=== PATIENT | male | born 1930 | race Caucasian/White ===

== ENCOUNTER 2016-08-29 13:07 | Emergency (ER) | payer MEDICARE, MEDICAID ==
[~2016-08-29] VITALS: Ht 167.6 cm; Wt 74.1 kg
[~2016-08-29 13:07] MED LIST: ALBU8I INH; ASPI81TA82 PO; ATOR80TA PO; HYDR12.56 PO; PROT40TA PO; TAMS0.4C67 PO; TRAM50 PO; VITA500015 CHEW
[2016-08-29 13:17] VITALS: BP 125/59; PULSE 61; RESP 18; TEMP 97.6; O2SAT 98
[2016-08-29] MEDS ORDERED: HYDR12.57 PO (13:34)
[2016-08-29] MEDS ORDERED: ASPI81TA81 (13:34)
[2016-08-29] MEDS ORDERED: NAPR220T95 PO (13:34)
--- NOTE | 2016-08-29 14:04 | PD ---
HPI Chief Complaint: Dizziness Time Seen by Provider: 13:44 Travel History International Travel<30 days: No Contact w/Intl Traveler<30days: No Traveled to known affect area: No History of Present Illness HPI This patient complains of headache in the occiput. Duration 2 days. Severity is moderate. No injury. No thunderclap onset. He also has some positional vertigo. No alleviating factors. PFSH Past Medical History Hx Anticoagulant Therapy: Yes (ASA) Arthritis: Yes Blood Disorders: No Heart Rhythm Problems: No Cancer: Yes (prostate) Cardiac Catheterization: No Cardiovascular Problems: Yes (HTN) High Cholesterol: Yes Chest Pain: Yes (11/2011) Congestive Heart Failure: No Cerebrovascular Accident: Yes Diabetes: No Diminished Hearing: Yes ([place] BILAT) Endocrine: No Genitourinary: Yes Headaches: Yes Hypertension: Yes Immune Disorder: No Musculoskeletal: Yes Neurologic: Yes Psychiatric: No Reproductive: No Respiratory: Yes Immunizations Current: Yes Radiation Therapy: Yes (OCTOBER 2001) Sleep Apnea: Yes (NOT ON CPAP) Ulcer: Yes (IN REMOTE PAST) Past Surgical History AICD: No Appendectomy: Yes Arteriovenous Shunt: No Cardiac Surgery: Yes (R CAROTIDECTOMY 2006) Coronary Artery Bypass Graft: No Ear Surgery: Yes Insulin Pump: No Joint Replacement: No Pacemaker: No Other Surgery: Yes (RIGHT ANKLE SX) Social History Alcohol Use: No Tobacco Use: No (QUIT 1969) Substance Use: No Allergies-Medications (Allergen,Severity, Reaction): Coded Allergies: No Known Allergies (Verified , 08/29/16) Reported Meds & Prescriptions Reported Meds & Active Scripts Active Reported Aleve (Naproxen Sodium) 220 Mg Tab 220 Mg PO BID PRN Aspir-81 (Aspirin) 81 Mg Tabdr Hydrochlorothiazide 12.5 Mg Cap 12.5 Mg PO DAILY Review of Systems General / Constitutional: No: Fever Eyes: No: Visual changes HENT: Positive: Headaches, Vertigo Cardiovascular: No: Chest Pain or Discomfort Respiratory: No: Shortness of Breath Gastrointestinal: No: Abdominal Pain Genitourinary: No: Dysuria Musculoskeletal: Positive: Pain Skin: No Rash Neurologic: Positive: Dizziness, Headache, No: Weakness Psychiatric: No: Depression Endocrine: No: Polydipsia Hematologic/Lymphatic: No: Easy Bruising Physical Exam Narrative GENERAL: Well-nourished, well-developed patient in no apparent distress. SKIN: Focused skin assessment reveals no rash and nodules. Skin is Warm and dry. HEAD: Atraumatic. Normocephalic. EYES: Pupils equal and round. No scleral icterus. No injection or drainage. ENT: No nasal bleeding or discharge. Mucous membranes pink and moist. NECK: Trachea midline. No JVD. CARDIOVASCULAR: Regular rate and rhythm. No murmur appreciated. RESPIRATORY: No accessory muscle use. Clear to auscultation. Breath sounds equal bilaterally. GASTROINTESTINAL: Abdomen soft, non-tender, nondistended. Hepatic and splenic margins not palpable. MUSCULOSKELETAL: No obvious deformities. No clubbing. No cyanosis. No edema. NEUROLOGICAL: Awake and alert. No obvious cranial nerve deficits. Motor grossly within normal limits. Normal speech. PSYCHIATRIC: Appropriate mood and affect; insight and judgment normal. Data Data Last Documented VS Vital Signs Date Time Temp Pulse Resp B/P Pulse Ox O2 Delivery O2 Flow Rate FiO2 08/29/16 13:35 Room Air 08/29/16 13:17 97.6 61 18 125/[address] Brain W/O Iv Contrast(Rout) (08/29/16 ) [facility] Medical Decision Making Medical Screen Exam Complete: Yes Emergency Medical Condition: Yes Medical Record Reviewed: Yes Differential Diagnosis Differential diagnosis includes migraine, tension headache, cluster headache, meningitis. Narrative Course I have reviewed the patient's electronic medical record. Patient is neurologically intact. Presentation not consistent with subarachnoid hemorrhage or meningitis Brain CT is normal Patient looks clinically well and feels better on recheck He is to call his primary physician for follow-up Diagnosis Primary Impression: Headache Qualified Code: R51 - Acute nonintractable headache, unspecified headache type Additional Impression: Vertigo Additional Instructions: The patient was advised to follow up with their physician and return if they worsen. Med/Other Pt SpecificInfo: Other Disposition: 01 DISCHARGE HOME Condition: Stable Zach Luna MD August 29, 2016 14:04
--- NOTE | 2016-08-29 15:06 | RADHPO ---
EXAM DATE/TIME: 08/29/2016 14:09 [facility] COMPARISON: CT BRAIN W/O CONTRAST, September 11, 2012, 1:27. INDICATIONS : Dizziness and headache. RADIATION DOSE: 65.21 CTDIvol (mGy) MEDICAL HISTORY : Cerebrovascular disease. Hypertension. Carcinoma, prostate.Anticoagulant therapy. SURGICAL HISTORY : Appendectomy. Right endarectomy. ENCOUNTER: Initial ACUITY: 1 day PAIN SCALE: 4/10 LOCATION: cranial TECHNIQUE: Multiple contiguous axial images were obtained of the head. Using automated exposure control and adj ustment of the mA and/or kV according to patient size, radiation dose was kept as low as reasonably a chievable to obtain optimal diagnostic quality images. FINDINGS: CEREBRUM: Diffuse prominence of the ventricles, sulci, and cisterns indicating age-appropriate diffuse atrophy. No evidence of midline shift, mass lesion, hemorrhage or acute infarction. No extra-axial fluid co llections are seen. POSTERIOR FOSSA: The cerebellum and brainstem are intact. The 4th ventricle is midline. The cerebellopontine angle i s unremarkable. EXTRACRANIAL: The visualized portion of the orbits is intact. Polyp or retention cyst in the anterior sphenoid sinu s again seen. SKULL: The calvaria is intact. No evidence of skull fracture. CONCLUSION: No acute intracranial findings. Jono Gibbons MD on August 29, 2016 at 14:59 Board Certified Radiologist. This report was verified electronically.
[2016-08-29 15:11] VITALS: BP 152/81; PULSE 58; RESP 16; O2SAT 98
== END 2016-08-29 15:19 | disposition home or self-care (01) ==
LOC: PHED 13:07
DX: R51 Headache (principal); R42 Dizziness and giddiness; I10 Essential (primary) hypertension; E78.00 Pure hypercholesterolemia, unspecified; G47.30 Sleep apnea, unspecified; Z79.82 Long term (current) use of aspirin; Z86.73 Personal history of transient ischemic attack (TIA), and cerebral infarction without residual deficits; Z87.891 Personal history of nicotine dependence
CPT/HCPCS: 70450

== ENCOUNTER 2017-01-20 13:14 | Emergency (ER) | payer MEDICARE, MEDICAID ==
[~2017-01-20] VITALS: Ht 162.6 cm; Wt 76.0 kg
[~2017-01-20 13:14] MED LIST changes: -ALBU8I INH; +ASPI81TA81; -ASPI81TA82 PO; -ATOR80TA PO; -HYDR12.56 PO; +HYDR12.57 PO; +NAPR220T95 PO; -PROT40TA PO; -TAMS0.4C67 PO; -TRAM50 PO; -VITA500015 CHEW
[2017-01-20 13:19] VITALS: BP 175/80; PULSE 60; RESP 18; TEMP 97.7; O2SAT 97
--- NOTE | 2017-01-20 13:47 | PD ---
HPI Chief Complaint: Edema Time Seen by Provider: 13:36 Travel History International Travel<30 days: No Contact w/Intl Traveler<30days: No Traveled to known affect area: No History of Present Illness HPI This 86-year-old male is complaining of some swelling of his ankles. He's had it for a couple of days. He's had intermittent swelling of his feet for about a year. He has a history of hypertension. He sees Dr. Harp. He had been on hydrochlorothiazide but was taken off of it a few months ago. He also says that he's been eating some TV dinners she is unusual for him. He has not had any chest pain or shortness of breath. He had a stroke in 2005. He stopped smoking at the age of 47. He checks his blood pressure at home and he thinks it was 135 this morning. PFSH Past Medical History Hx Anticoagulant Therapy: Yes (ASA) Arthritis: Yes Blood Disorders: No Heart Rhythm Problems: No Cancer: Yes (prostate) Cardiac Catheterization: No Cardiovascular Problems: Yes (HTN) High Cholesterol: Yes Chest Pain: Yes (11/2011) Congestive Heart Failure: No Cerebrovascular Accident: Yes (HX stroke) Diabetes: No Diminished Hearing: Yes ([place] BILAT) Endocrine: No Genitourinary: Yes Headaches: Yes Hypertension: Yes Immune Disorder: No Musculoskeletal: Yes Neurologic: Yes Psychiatric: No Reproductive: No Respiratory: Yes Immunizations Current: Yes Radiation Therapy: Yes (OCTOBER 2001) Sleep Apnea: Yes (NOT ON CPAP) Ulcer: Yes (IN REMOTE PAST) ?: Not Past Surgical History AICD: No Appendectomy: Yes Arteriovenous Shunt: No Cardiac Surgery: Yes (R CAROTIDECTOMY 2006) Coronary Artery Bypass Graft: No Ear Surgery: Yes Insulin Pump: No Joint Replacement: No Pacemaker: No Other Surgery: Yes (RIGHT ANKLE SX) Social History Alcohol Use: No Tobacco Use: No (QUIT 1969) Substance Use: No Allergies-Medications (Allergen,Severity, Reaction): Coded Allergies: No Known Allergies (Verified , 01/20/17) Reported Meds & Prescriptions Reported Meds & Active Scripts Active Reported Tamsulosin (Tamsulosin HCl) 0.4 Mg Cap 0.4 Mg PO DAILY Aleve (Naproxen Sodium) 220 Mg Tab 220 Mg PO BID PRN Aspir-81 (Aspirin) 81 Mg Tabdr Review of Systems General / Constitutional: No: Fever, Chills Eyes: No: Diploplia, Blurred Vision HENT: No: Headaches, Vertigo Cardiovascular: Positive: Edema, No: Chest Pain or Discomfort, Palpitations Respiratory: No: Cough, Shortness of Breath Gastrointestinal: No: Nausea, Vomiting Genitourinary: No: Urgency, Frequency Musculoskeletal: No: Myalgias Neurologic: No: Focal Abnormalities Hematologic/Lymphatic: No: Easy Bruising Physical Exam Narrative GENERAL: Well-developed male SKIN: Focused skin assessment warm/dry. HEAD: Atraumatic. Normocephalic. EYES: Pupils equal and round. No scleral icterus. No injection or drainage. ENT: No nasal bleeding or discharge. Mucous membranes pink and moist. NECK: Trachea midline. No JVD. CARDIOVASCULAR: Regular rate and rhythm. No murmur appreciated. RESPIRATORY: No accessory muscle use. Clear to auscultation. Breath sounds equal bilaterally. GASTROINTESTINAL: Abdomen soft, non-tender, nondistended. Hepatic and splenic margins not palpable. MUSCULOSKELETAL: No obvious deformities. No clubbing. No cyanosis. There is bilateral 1+ ankle edema NEUROLOGICAL: Awake and alert. No obvious cranial nerve deficits. Motor grossly within normal limits. Normal speech. PSYCHIATRIC: Appropriate mood and affect; insight and judgment normal. Data Data Last Documented VS Vital Signs Date Time Temp Pulse Resp B/P (MAP) Pulse Ox O2 Delivery O2 Flow Rate FiO2 01/20/17 14:48 55 14 160/75 (103) 98 Room Air 01/20/17 13:19 97.7 Orders Orders Complete Blood Count With Diff (01/20/17 13:45) Comprehensive Metabolic Panel (01/20/17 13:45) Labs Laboratory Tests Test 01/20/17 14:05 White Blood Count 7.9 TH/MM3 Red Blood Count 4.40 MIL/MM3 Hemoglobin 13.2 GM/DL Hematocrit 37.8 % Mean Corpuscular Volume 86.1 FL Mean Corpuscular Hemoglobin 30.0 PG Mean Corpuscular Hemoglobin Concent 34.9 % Red Cell Distribution Width 12.9 % Platelet Count 169 TH/MM3 Mean Platelet Volume 8.8 FL Neutrophils (%) (Auto) 64.6 % Lymphocytes (%) (Auto) 22.1 % Monocytes (%) (Auto) 7.2 % Eosinophils (%) (Auto) 5.0 % Basophils (%) (Auto) 1.1 % Neutrophils # (Auto) 5.0 TH/MM3 Lymphocytes # (Auto) 1.8 TH/MM3 Monocytes # (Auto) 0.6 TH/MM3 Eosinophils # (Auto) 0.4 TH/MM3 Basophils # (Auto) 0.1 TH/MM3 CBC Comment DIFF FINAL Differential Comment Blood Urea Nitrogen 21 MG/DL Creatinine 1.10 MG/DL Random Glucose 87 MG/DL Total Protein 6.5 GM/DL Albumin 3.6 GM/DL Calcium Level 8.5 MG/DL Alkaline Phosphatase 51 U/L Aspartate Amino Transf (AST/SGOT) 27 U/L Alanine Aminotransferase (ALT/SGPT) 27 U/L Total Bilirubin 0.8 MG/DL Sodium Level 139 MEQ/L Potassium Level 4.1 MEQ/L Chloride Level 103 MEQ/L Carbon Dioxide Level 29.6 MEQ/L Anion Gap 6 MEQ/L Estimat Glomerular Filtration Rate 63 ML/MIN MDM Medical Decision Making Medical Screen Exam Complete: Yes Emergency Medical Condition: Yes Medical Record Reviewed: Yes Differential Diagnosis Patient has some peripheral edema which could be secondary to hypoalbuminemia, excessive salt ingestion, CHF Narrative Course Patient admits to increased salt ingestion recently. In the past she has been on hydrochlorothiazide 25 mg daily for high blood pressure but was stopped because his pressure and becoming low. I think he should resume this medication. He has it at home. Diagnosis Primary Impression: Edema Additional Instructions: Take hydrochlorothiazide 25 mg once daily for edema Disposition: 01 DISCHARGE HOME Condition: Stable Gato Reyes MD Jan 20, 2017 13:47
[2017-01-20] MEDS ORDERED: TAMS0.4C4 PO (13:50)
[2017-01-20 14:14] LABS: BASOPHIL # 0.1 TH/MM3 (0-0.2); BASOPHIL % 1.1 % (0.0-2.0); EOSINOPHIL # 0.4 TH/MM3 (0-0.4); HEMATOCRIT 37.8 % (39.0-51.0); HEMO FLAGS DIFF FINAL; LYMPH % 22.1 % (9.0-44.0); LYMPHOCYTE # 1.8 TH/MM3 (1.0-4.8); MEAN CELL VOLUME 86.1 FL (80.0-100.0); MEAN CORPUSCULAR HGB CONC 34.9 % (32.0-36.0); MONO % 7.2 % (0.0-8.0); NEUT % 64.6 % (16.0-70.0); PLATELET COUNT 169 TH/MM3 (150-450); RED CELL DISTRIBUTION WIDTH 12.9 % (11.6-17.2); WHITE BLOOD COUNT 7.9 TH/MM3 (4.0-11.0)
[2017-01-20 14:27] LABS: CHLORIDE 103 MEQ/L (98-107); POTASSIUM 4.1 MEQ/L (3.5-5.1); SODIUM (NA) 139 MEQ/L (136-145)
[2017-01-20 14:30] LABS: ANION GAP 6 MEQ/L (5-15); BICARBONATE 29.6 MEQ/L (21.0-32.0); BLOOD UREA NITROGEN 21 MG/DL (7-18)
[2017-01-20 14:33] LABS: ALT (GPT) 27 U/L (12-78); AST (GOT) 27 U/L (15-37)
[2017-01-20 14:34] LABS: GLOMERULAR FILTRATION RATE 63 ML/MIN (>89)
[2017-01-20 14:35] LABS: TOTAL BILIRUBIN ADULT 0.8 MG/DL (0.2-1.0)
[2017-01-20 14:36] LABS: ALKALINE PHOSPHATASE 51 U/L (45-117)
[2017-01-20 14:48] VITALS: BP 160/75; PULSE 55; RESP 14; O2SAT 98
== END 2017-01-20 15:14 | disposition home or self-care (01) ==
LOC: PHED 13:14
DX: R60.0 Localized edema (principal); I10 Essential (primary) hypertension; E78.00 Pure hypercholesterolemia, unspecified; G47.30 Sleep apnea, unspecified; H91.93 Unspecified hearing loss, bilateral; Z79.82 Long term (current) use of aspirin; Z87.39 Personal history of other diseases of the musculoskeletal system and connective tissue; Z85.46 Personal history of malignant neoplasm of prostate; Z86.79 Personal history of other diseases of the circulatory system; Z87.448 Personal history of other diseases of urinary system; Z86.69 Personal history of other diseases of the nervous system and sense organs
CPT/HCPCS: 80053; 85025; 99283

== ENCOUNTER 2017-06-03 10:12 | Emergency (ER) | payer MEDICARE, MEDICAID ==
[~2017-06-03] VITALS: Ht 162.6 cm; Wt 73.0 kg
[~2017-06-03 10:12] MED LIST changes: -HYDR12.57 PO; +TAMS0.4C4 PO
[2017-06-03 10:18] VITALS: BP 148/75; PULSE 78; RESP 16; TEMP 98.2; O2SAT 97
[2017-06-03] MEDS ORDERED: HYDR12.57 PO (10:38)
--- NOTE | 2017-06-03 10:49 | PD ---
HPI Chief Complaint: Flank/Kidney Pain Time Seen by Provider: 10:47 Travel History International Travel<30 days: No Contact w/Intl Traveler<30days: No Traveled to known affect area: No History of Present Illness HPI Patient presents with concerns of right flank pain. Reports urinary frequency with history of BPH. Compliant with tamsulosin. Concerns of UTI. Denies any history of kidney stones. Denies any nausea vomiting diarrhea or fever. Denies any hematuria. Mild pain on urination. PFSH Past Medical History Hx Anticoagulant Therapy: Yes (ASA) Arthritis: Yes Blood Disorders: No Heart Rhythm Problems: No Cancer: Yes (prostate) Cardiac Catheterization: No Cardiovascular Problems: Yes (HTN) High Cholesterol: Yes Chest Pain: Yes (11/2011) Congestive Heart Failure: No Cerebrovascular Accident: Yes (HX stroke) Diabetes: No Diminished Hearing: Yes ([place] BILAT) Endocrine: No Genitourinary: Yes Headaches: Yes Hypertension: Yes Immune Disorder: No Musculoskeletal: Yes Neurologic: Yes Psychiatric: No Reproductive: No Respiratory: Yes Immunizations Current: Yes Pneumonia: Yes (x3) Radiation Therapy: Yes (OCTOBER 2001) Sleep Apnea: Yes (NOT ON CPAP) Ulcer: Yes (IN REMOTE PAST) Tetanus Vaccination: < 5 Years Influenza Vaccination: Yes Past Surgical History AICD: No Appendectomy: Yes Arteriovenous Shunt: No Cardiac Surgery: Yes (R CAROTIDECTOMY 2006) Coronary Artery Bypass Graft: No Ear Surgery: Yes Insulin Pump: No Joint Replacement: No Pacemaker: No Other Surgery: Yes (RIGHT ANKLE SX) Social History Alcohol Use: No Tobacco Use: No (QUIT 1969) Substance Use: No Allergies-Medications (Allergen,Severity, Reaction): Coded Allergies: No Known Allergies (Verified Adverse Reaction, Unknown, 06/03/17) Reported Meds & Prescriptions Reported Meds & Active Scripts Active Reported Hydrochlorothiazide 12.5 Mg Cap Unknown Dose PO DAILY Tamsulosin (Tamsulosin HCl) 0.4 Mg Cap 0.4 Mg PO DAILY Aspir-81 (Aspirin) 81 Mg Tabdr Review of Systems General / Constitutional: No: Fever Eyes: No: Visual changes HENT: No: Headaches Cardiovascular: No: Chest Pain or Discomfort Respiratory: No: Shortness of Breath Gastrointestinal: No: Abdominal Pain Genitourinary: Positive: Frequency, Dysuria Musculoskeletal: No: Pain Skin: No Rash Neurologic: No: Weakness Psychiatric: No: Depression Endocrine: No: Polydipsia Hematologic/Lymphatic: No: Easy Bruising Physical Exam Narrative GENERAL: Well-nourished, well-developed patient. SKIN: Focused skin assessment warm/dry. HEAD: Normocephalic. EYES: No scleral icterus. No injection or drainage. NECK: Supple, trachea midline. No JVD or lymphadenopathy. CARDIOVASCULAR: Regular rate and rhythm without murmurs, gallops, or rubs. RESPIRATORY: Breath sounds equal bilaterally. No accessory muscle use. GASTROINTESTINAL: Abdomen soft, non-tender, nondistended. MUSCULOSKELETAL: No cyanosis, or edema. BACK: Nontender without obvious deformity. No CVA tenderness. Data Data Last Documented VS Vital Signs Date Time Temp Pulse Resp B/P (MAP) Pulse Ox O2 Delivery O2 Flow Rate FiO2 06/03/17 10:18 98.2 78 16 148/75 (99) 97 Orders Orders Urinalysis - C+S If Indicated (06/03/17 10:47) Labs Laboratory Tests Test 06/03/17 10:49 Urine Collection Type CLEAN CATCH Urine Color YELLOW Urine Turbidity CLEAR Urine pH 7.5 Urine Specific [place] 1.016 Urine Protein NEG mg/dL Urine Glucose (UA) NEG mg/dL Urine Ketones NEG mg/dL Urine Occult Blood NEG Urine Nitrite NEG Urine Bilirubin NEG Urine Leukocyte Esterase NEG Urine WBC 0-2 /hpf Microscopic Urinalysis Comment CULT NOT INDICATED MDM Medical Decision Making Medical Screen Exam Complete: Yes Emergency Medical Condition: Yes Differential Diagnosis UTI, cystitis, urethritis, nephritis Narrative Course Assessment and plan discussed with patient at bedside. Urinalysis is normal. Patient became impatient requesting immediate discharge or AMA. Declines any further workup. Diagnosis Primary Impression: Dysuria Patient Instructions: General Instructions Additional Instructions: Encourage fluids and a cranberry supplement. Return to emergency with any onset of new symptoms. Follow-up with PCP. Med/Other Pt SpecificInfo: No Meds Exist/No RX given Disposition: 01 DISCHARGE HOME Condition: Good Mike Sesay MD Jun 03, 2017 10:49
[2017-06-03 10:58] LABS: BILIRUBIN, URINE NEG (NEG); BLOOD, URINE NEG (NEG); GLUCOSE,URINE NEG (NEG); KETONE, URINE NEG (NEG); NITRITE,URINE NEG (NEG); PH, URINE 7.5 (5.0-8.5); URINE LEUKOCYTE ESTERASE NEG (NEG)
[2017-06-03 11:00] LABS: URINE COLOR YELLOW (YELLW/STRAW)
[2017-06-03 11:02] LABS: WBC, URINE 0-2 /hpf (0-5)
[2017-06-04] MEDS ORDERED: TYLETAB34 PO (10:27)
[2017-06-04] MEDS ORDERED: DIAZ5 PO (10:27)
== END 2017-06-03 11:10 | disposition home or self-care (01) ==
LOC: PHED 10:12
DX: R30.0 Dysuria (principal); I10 Essential (primary) hypertension; N40.0 Benign prostatic hyperplasia without lower urinary tract symptoms
CPT/HCPCS: 81001; 99283

== ENCOUNTER 2017-06-04 08:21 | Emergency (ER) | payer MEDICARE, MEDICAID ==
[~2017-06-04] VITALS: Ht 162.6 cm; Wt 73.0 kg
[~2017-06-04 08:21] MED LIST changes: +HYDR12.57 PO; -NAPR220T95 PO
[2017-06-04 08:29] VITALS: BP 137/74; PULSE 71; RESP 18; TEMP 98.6; O2SAT 96
[2017-06-04 08:57] LABS: BILIRUBIN, URINE NEG (NEG); BLOOD, URINE NEG (NEG); GLUCOSE,URINE NEG (NEG); KETONE, URINE NEG (NEG); NITRITE,URINE NEG (NEG); URINE LEUKOCYTE ESTERASE NEG (NEG)
--- NOTE | 2017-06-04 09:00 | PD ---
HPI . Flank pain Chief Complaint: Flank/Kidney Pain Time Seen by Provider: 08:43 Travel History International Travel<30 days: No Contact w/Intl Traveler<30days: No Traveled to known affect area: No History of Present Illness HPI This patient presents with a chief complaint of right flank pain. Onset was a week ago. He states that it is getting progressively worse. He describes it as spasms. He rates it 10/10. It is exacerbated by deep respirations. He has not noted any relieving factors. He denies any associated symptoms such as fever, cough, shortness of breath, urinary tract symptoms. He states that he has been seen both at [facility] and here for similar complaints and has had his urine tested twice. Both times his urine was clean. PFSH Past Medical History Hx Anticoagulant Therapy: Yes (ASA) Arthritis: Yes Blood Disorders: No Heart Rhythm Problems: No Cancer: Yes (prostate) Cardiac Catheterization: No Cardiovascular Problems: Yes (HTN) High Cholesterol: Yes Chest Pain: Yes (11/2011) Congestive Heart Failure: No Cerebrovascular Accident: Yes (HX stroke) Diabetes: No Diminished Hearing: Yes ([place] BILAT) Endocrine: No Genitourinary: Yes Headaches: Yes Hypertension: Yes Immune Disorder: No Musculoskeletal: Yes Neurologic: Yes Psychiatric: No Reproductive: No Respiratory: Yes Immunizations Current: Yes Pneumonia: Yes (x3) Radiation Therapy: Yes (OCTOBER 2001) Sleep Apnea: Yes (NOT ON CPAP) Ulcer: Yes (IN REMOTE PAST) Tetanus Vaccination: < 5 Years Influenza Vaccination: Yes Past Surgical History AICD: No Appendectomy: Yes Arteriovenous Shunt: No Cardiac Surgery: Yes (R CAROTIDECTOMY 2006) Coronary Artery Bypass Graft: No Ear Surgery: Yes Insulin Pump: No Joint Replacement: No Pacemaker: No Other Surgery: Yes (RIGHT ANKLE SX) Social History Alcohol Use: No Tobacco Use: No (QUIT 1969) Substance Use: No Allergies-Medications (Allergen,Severity, Reaction): Coded Allergies: No Known Allergies (Verified Adverse Reaction, Unknown, 06/04/17) Reported Meds & Prescriptions Reported Meds & Active Scripts Active Reported Hydrochlorothiazide 12.5 Mg Cap Unknown Dose PO DAILY Tamsulosin (Tamsulosin HCl) 0.4 Mg Cap 0.4 Mg PO DAILY Aspir-81 (Aspirin) 81 Mg Tabdr Review of Systems Except as stated in HPI: all other systems reviewed are Neg General / Constitutional: No: Fever, Chills Respiratory: No: Cough, Shortness of Breath Gastrointestinal: No: Nausea, Vomiting Genitourinary: Positive: Nocturia, Flank Pain, No: Urgency, Frequency, Dysuria , Hesitancy, Dribbling, Incontinence Physical Exam Narrative GENERAL: I found the patient up ambulatory in his room in no acute distress. SKIN: Warm and dry. Normal color and turgor. HEAD: Normocephalic/atraumatic. EYES: Pupils are equal. Extraocular movements are intact. NECK: Normal range of motion. CARDIOVASCULAR: Regular rate and rhythm. RESPIRATORY: Nonlabored respirations. Lungs are clear with full air movement throughout. ABDOMEN: Abdomen is soft and nontender. No pulsatile abdominal masses. There is no right upper quadrant tenderness. : He does have some right CVA tenderness. MUSCULOSKELETAL: Atraumatic. He also has some tenderness in the right paraspinous muscles of the low back. NEUROLOGICAL: Nonfocal. PSYCHIATRIC: Appropriate mood and affect. Data Data Last Documented VS Vital Signs Date Time Temp Pulse Resp B/P (MAP) Pulse Ox O2 Delivery O2 Flow Rate FiO2 06/04/17 08:29 98.6 71 18 137/74 (95) 96 Orders Orders Urinalysis - C+S If Indicated (06/04/17 08:24) Ct Abd/Pel W/O Iv Contrast (06/04/17 08:52) Labs Laboratory Tests Test 06/04/17 08:40 Urine Collection Type CLEAN CATCH Urine Color YELLOW Urine Turbidity CLEAR Urine pH 6.0 Urine Specific [place] 1.024 Urine Protein TRACE mg/dL Urine Glucose (UA) NEG mg/dL Urine Ketones NEG mg/dL Urine Occult Blood NEG Urine Nitrite NEG Urine Bilirubin NEG Urine Leukocyte Esterase NEG Urine Squamous Epithelial Cells 0-5 /hpf Urine Amorphous Sediment FEW Microscopic Urinalysis Comment CULT NOT INDICATED Urine Collection Time 0840 MDM Medical Decision Making Medical Screen Exam Complete: Yes Emergency Medical Condition: Yes Medical Record Reviewed: Yes (patient was seen here yesterday for the same thing. He had a negative urinalysis. The physician at that time wanted to do further studies but the patient was insisted that he be discharged. Apparently inpatient. Therefore, he was discharged before workup was complete.) Differential Diagnosis Differential diagnosis of flank pain includes but is not limited to kidney stone , pyelonephritis, musculoskeletal pain, PE Narrative Course Patient presents with right flank pain. He does not have any physical exam findings concerning for AAA. His exam is actually most consistent with musculoskeletal right low back pain. CT is pending to look for stone. UA is negative. Diagnosis Primary Impression: Right flank pain Patient Instructions: Flank Pain (ED), General Instructions Med/Other Pt SpecificInfo: Prescription(s) given Scripts Diazepam (Valium) 5 Mg Tab 5 MG PO TID Y for muscle spasm, #10 TAB 0 Refills Prov: Ghislaine Strauss MD 06/04/17 Acetaminophen-Codeine (Tylenol-Codeine #3) 300-30 mg Tab 1 TAB PO Q4H Y for PAIN, #12 TAB 0 Refills Prov: Ghislaine Strauss MD 06/04/17 Disposition: 01 DISCHARGE HOME Condition: Stable Ghislaine Strauss MD Jun 04, 2017 09:00
[2017-06-04 09:09] LABS: URINE COLOR YELLOW (YELLW/STRAW)
[2017-06-04 09:10] LABS: AMORPHOUS SEDIMENT, URINE FEW; SQUAMOUS EPITHELIAL CELL URINE 0-5 /hpf (0-5)
--- NOTE | 2017-06-04 10:12 | RADRPT ---
EXAM DATE/TIME: 06/04/2017 09:19 [facility] COMPARISON: No previous studies available for comparison. INDICATIONS : Right flank pain radiating down to inguinal area. Evaluet for renal stone. ORAL CONTRAST: No oral contrast ingested. RADIATION DOSE: 18.43 CTDIvol (mGy) MEDICAL HISTORY : Cerebrovascular disease. Hypertension. Carcinoma, prostate.Anticoaglant therapy. SURGICAL HISTORY : Carotid endarterectomy. ENCOUNTER: Initial ACUITY: 1 week PAIN SCALE: 4/10 LOCATION: Right flank TECHNIQUE: Volumetric scanning of the abdomen and pelvis was performed. Using automated exposure control and ad justment of the mA and/or kV according to patient size, radiation dose was kept as low as reasonably achievable to obtain optimal diagnostic quality images. DICOM format image data is available electro nically for review and comparison. FINDINGS: LOWER LUNGS: Bronchitis is noted at the right lung base. LIVER: Homogeneous density without lesion. There is no dilation of the biliary tree. Gallbladder is moderat beata distended but otherwise unremarkable by CT. SPLEEN: Normal in size with just a calcified lesion centrally. PANCREAS: Within normal limits. KIDNEYS: Kidneys are grossly symmetric in size without evidence for radiopaque renal calculi or hydronephrosis . There is a 5.5 x 6.5 cm cyst in the anterior inferior right renal pole. ADRENAL GLANDS: Within normal limits. VASCULAR: There is no aortic aneurysm. BOWEL/MESENTERY: Mild sigmoid and scattered descending colonic diverticulosis without significant inflammatory change. The appendix is not directly visualized. There is no significant inflammatory change in the right lo wer quadrant. Bowel otherwise appears unremarkable without evidence for obstruction. ABDOMINAL WALL: Small fat containing periumbilical anterior abdominal wall hernia. RETROPERITONEUM: There is no lymphadenopathy. BLADDER: Nearly completely decompressed. No radiopaque bladder calculi. REPRODUCTIVE: Within normal limits. INGUINAL: Small fat containing bilateral inguinal hernias. MUSCULOSKELETAL: Degenerative spondylosis of the lumbar spine with near-complete fusion at L3-4. CONCLUSION: 1. 5.5 x 6.5 cm cyst in the anterior inferior right renal pole. Otherwise, no definitive CT findings to explain patient's right flank pain. Specifically, no radiopaque renal calculi or obstructive uropa thy. 2. Ancillary findings include mild bronchiectasis at the right lung base, colonic diverticulosis, sma ll fat containing periumbilical and bilateral inguinal hernias, and degenerative spondylosis of the l umbar spine. Clem Mosley MD on June 04, 2017 at 9:52 Board Certified Radiologist. This report was verified electronically.
[2017-06-04] MEDS ORDERED: DIAZ5 PO (10:27)
[2017-06-04] MEDS ORDERED: TYLETAB34 PO (10:27)
[2017-06-04 10:30] VITALS: BP 131/79; PULSE 78; RESP 16; O2SAT 100
== END 2017-06-04 11:00 | disposition home or self-care (01) ==
LOC: PHED 08:21
DX: R10.9 Unspecified abdominal pain (principal); M54.5 Low back pain; I10 Essential (primary) hypertension; E78.00 Pure hypercholesterolemia, unspecified; G47.30 Sleep apnea, unspecified; H91.93 Unspecified hearing loss, bilateral; Z79.82 Long term (current) use of aspirin; Z87.39 Personal history of other diseases of the musculoskeletal system and connective tissue; Z86.73 Personal history of transient ischemic attack (TIA), and cerebral infarction without residual deficits; Z87.448 Personal history of other diseases of urinary system; Z86.69 Personal history of other diseases of the nervous system and sense organs; Z85.46 Personal history of malignant neoplasm of prostate
CPT/HCPCS: 74176; 81001; 99281